=== PATIENT | female | born 1980 | race Caucasian/White ===

== ENCOUNTER 2018-11-19 22:01 | Emergency (ER) | payer MEDICAID ==
[2018-11-20] MEDS: ONDANSETRON (ODT) 4 MG TAB ODT (01:56)
[2018-11-20] MEDS: ACETAMINOPHEN 500 MG TAB PO (01:57)
== END 2018-11-20 02:16 | disposition home or self-care (01) ==
LOC: FTE 22:01
DX: J06.9 Acute upper respiratory infection, unspecified (principal)
CPT/HCPCS: 99283; Z7502

== ENCOUNTER 2019-07-04 16:42 | Emergency (ER) | payer MEDICAID ==
[2019-07-04 17:58] LABS: ADD MAN DIFF? NO
[2019-07-04 18:00] LABS: WHITE BLOOD COUNT 11.1 10^3/ul (4.8-10.8)
[2019-07-04 18:01] LABS: BASOPHIL # 0.1 10^3/ul (0.0-0.1); BASOPHILS % 0.5 % (0.0-2.0); EOSINOPHILS % 0.3 % (0.0-7.0); HEMATOCRIT 32.8 % (37.0-47.0); HEMOGLOBIN 9.8 g/dl (12.0-16.0); LYMPHOCYTES # 2.3 10^3/ul (0.8-2.9); LYMPHOCYTES % 21.1 % (15.0-51.0); MEAN CORPUSCULAR HEMOGLOBIN 23.5 pg (29.0-33.0); MEAN CORPUSCULAR HGB CONC 29.9 g/dl (32.0-37.0); MEAN CORPUSCULAR VOLUME 78.7 fl (82.0-101.0); MEAN PLATELET VOLUME 10.3 fl (7.4-10.4); MONOCYTE # 0.6 10^3/ul (0.3-0.9); MONOCYTES % 5.8 % (0.0-11.0); NEUTROPHILS % 71.9 % (39.0-77.0); PLATELET COUNT 527 10^3/UL (140-415); RED BLOOD COUNT 4.17 10^6/ul (4.20-5.40); RED CELL DISTRIBUTION WIDTH 16.6 % (11.5-14.5)
[2019-07-04 18:18] LABS: ADD UMIC YES; UR ASCORBIC ACID 40 mg/dL (NEGATIVE); UR BILIRUBIN (Dip) NEGATIVE (NEGATIVE); UR BLOOD (Dip) 3+ mg/dL (NEGATIVE); UR CLARITY SLIGHTLY CLOUDY (CLEAR); UR COLOR YELLOW (YELLOW); UR GLUCOSE (Dip) NEGATIVE (NEGATIVE); UR KETONES (Dip) NEGATIVE (NEGATIVE); UR LEUKOCYTE ESTERASE (Dip) TRACE Leu/ul (NEGATIVE); UR NITRITE (Dip) NEGATIVE (NEGATIVE); UR RBC > 182 /HPF (0-5); UR SPECIFIC GRAVITY (Dip) 1.017 (1.003-1.030); UR SQUAMOUS EPITHELIAL CELL FEW /HPF (FEW); UR TOTAL PROTEIN (Dip) NEGATIVE (NEGATIVE); UR UROBILINOGEN (Dip) NEGATIVE (NEGATIVE); UR WBC 3 /HPF (0-5)
== END 2019-07-04 19:23 | disposition home or self-care (01) ==
LOC: E/R 19:23
DX: O20.9 Hemorrhage in early pregnancy, unspecified (principal); Z3A.01 Less than 8 weeks gestation of pregnancy
CPT/HCPCS: 76801; 76817; 81001; 84702; 85025; 86900; 86901; 99284-25

== ENCOUNTER 2019-07-06 13:42 | Emergency (ER) | payer MEDICAID | END 2019-07-06 17:16 | disposition home or self-care (01) | LOC: FTE 13:42 | DX: O20.9 Hemorrhage in early pregnancy, unspecified (principal); Z3A.00 Weeks of gestation of pregnancy not specified | CPT/HCPCS: 36415; 76801; 76817; 84702; 99284-25 ==